=== PATIENT | female | born 1970 | race Caucasian/White ===

== ENCOUNTER 2023-01-30 20:59 | Outpatient (REF) | payer BC, SELFPAY ==
[2023-02-07 12:09] LABS: Age Gdln ACOG Testing Note (.); HPV Aptima Negative (Negative); IGP, Aptima HPV, rfx 16/18,45 Note (.)
== END 2023-01-30 21:00 | disposition home or self-care (01) ==
LOC: LAB 20:59
PROVIDERS: Visit Provider Obstetrics & Gynecology
DX: Z12.4 Encounter for screening for malignant neoplasm of cervix (principal)
CPT/HCPCS: 87624; G0145

== ENCOUNTER 2023-02-24 08:48 | Outpatient (OUT) | payer BC, SELFPAY ==
--- NOTE | 2023-02-24 09:01 | XR_ITS ---
[address] [address] Patient Name: EDEN GOINS MRN: [facility]:[id number] date: 1970 Sex: F Assigned Patient Location: [facility] Current Patient Location: [facility] Accession/Order Number: [id number] Exam Date: 02/24/2023 09:35 Report Date: 02/24/2023 10:23 At the request of: DAY PETERSEN Procedure: XR DEXA axial skeleton EXAMINATION: XR DEXA axial skeleton HISTORY: M81.0 OSTEOPOROSIS COMPARISON: No relevant comparison available. TECHNIQUE: Dual-energy X-ray absorptiometry (DXA) was performed. FINDINGS: FOREARM ANALYSIS: Average bone mineral density is 0.982 g/cm2. T-score (standard deviation relative to young adult mean): -0.4 . HIP ANALYSIS: Lowest bone mineral density is within the right femoral trochanter, 0.730 g/cm2. T-score (standard deviation relative to young adult mean): -1.0 . XR/XR DEXA axial skeleton IMPRESSION: World [employer] Organization Classification: Normal - Low Fracture Risk Electronically authenticated by: BRITNEY QUESADA Date: 02/24/2023 10:23
== END 2023-02-24 08:49 | disposition home or self-care (01) ==
LOC: RAD 08:51
PROVIDERS: Visit Provider Obstetrics & Gynecology
DX: Z01.810 Encounter for preprocedural cardiovascular examination (principal); R10.2 Pelvic and perineal pain; N92.0 Excessive and frequent menstruation with regular cycle; N93.9 Abnormal uterine and vaginal bleeding, unspecified; M81.0 Age-related osteoporosis without current pathological fracture
CPT/HCPCS: 77080; 93005

== ENCOUNTER 2023-02-24 08:53 | Outpatient (OUT) | payer BC, SELFPAY ==
--- NOTE | 2023-02-24 08:58 | ECG_ITS ---
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
== END 2023-02-24 08:54 | disposition home or self-care (01) ==
PROVIDERS: PCP Family Medicine; Visit Provider Obstetrics & Gynecology
DX: Z01.810 Encounter for preprocedural cardiovascular examination (principal); R10.2 Pelvic and perineal pain; N92.0 Excessive and frequent menstruation with regular cycle; N93.9 Abnormal uterine and vaginal bleeding, unspecified
CPT/HCPCS: 93005

== ENCOUNTER 2023-02-28 07:24 | Day surgery (SDC) | payer BC, SELFPAY ==
[2023-02-24 09:23] VITALS: BP 125/80; PULSE 87; RESP 20; TEMP 36.2; O2SAT 98; BMI 36.7
[2023-02-28] VITALS (10 sets, daily range): BP systolic 109–138; BP diastolic 59–91; PULSE 77–88; RESP 11–80; TEMP 35.6–36.3; O2SAT 97–100; BMI 36.7
[2023-02-28 07:44] LABS: Glucometer 87 mg/dL (74-106)
[2023-02-28] MEDS: LACTATED RINGER'S SOLUTION 1,000 ML 50 ML IV ×2 (07:51→10:51)
[2023-02-28 07:55] LABS: Basophils Percent Auto 0.7 % (0.2-2.0); Eosinophils Absolute Auto 0.1 10^3/uL (0.0-0.7); Eosinophils Percent Auto 1.7 % (0.9-7.0); Hematocrit 36.1 % (36.0-48.0); Hemoglobin 11.4 g/dL (12.0-16.0); Immature Granulocytes Abs Auto 0.03 10^3/uL (0.00-0.03); Immature Granulocytes Pct Auto 0.5 % (0.0-0.5); Lymphocytes Absolute Auto 1.8 10^3/uL (1.2-3.8); Lymphocytes Percent Auto 30.2 % (20.5-60.0); Mean Corpuscular HGB Conc 31.6 g/dL (29.9-35.2); Mean Corpuscular Volume 91.9 fL (81.0-99.0); Mean Platelet Volume 10.3 fL (9.5-13.5); Monocytes Absolute Auto 0.4 10^3/uL (0.3-0.8); Neutrophils Absolute Auto 3.7 10^3/uL (1.4-6.5); Neutrophils Percent Auto 60.9 % (43.0-75.0); Platelet Count 263 10^3/uL (150-450); Red Blood Count 3.93 10^6/uL (4.20-5.40); Red Cell Distribution Width 14.2 % (11.0-15.0)
[2023-02-28 08:25] LABS: HCG Quantitative <1 mIU/mL
--- NOTE | 2023-02-28 10:38 | P.ON_ITS ---
Brief Operative Note Date of procedure: 02/28/23 Pre-op diagnosis: menorrhagia, desires permanent sterilization Post-op diagnosis: same as pre-op Procedure: NAME OF PROCEDURE: robotic assisted Laparoscopic bilateral salpingectomy, with Della endometrial ablation with hysteroscopy PROCEDURE: The patient was taken back to the OR where she was prepped and draped in the normal sterile fashion after being placed in the dorsal lithotomy position, after being placed under general anesthesia without difficulty. a weighted speculum was then placed into the vagina. Pap and endometrial bx were performed without difficultyThe anterior lip was grasped with a single tooth tenaculum. The patient was then sounded to approximatley 9cm. The patient was gently sounded using Hegar dilators and the hysteroscope was passed through the cervix into the uterus where both ostia were seen. No gross evidence of polyps, fibroids or malignancy. The cervical length was noted to be 4cm. The Della ablation apparatus was set to approximately 5cm in length. This was placed in through the cervix and into the uterus. After the seal was tested, at that time the total ablation of 120 seconds was performed with the Della without difficulty. All instruments were removed from the vagina. A wet sponge stick was placed into the patient's vagina. Attention was then turned to the patient's abdomen, where a scalpel was used to make a small infraumbilical incision. The S retractors were then used to dissect the underlying layers until the fascia could be seen. The fascia was then grasped with Saran clamps and tented up. A knife was then used to make a small incision to the fascia. The muscle was identified, at that time two sutures of #0 Vicryl on a GI needlewas then used and placed through the fascia. The peritoneum was then identified and entered bluntly. The 10-4 Cara was then placed into the patient's abdomen. This was confirmed with direct visualization of the bowel, using the laparoscope. The patient's abdomen was then insufflated using approximately 4 liters of CO2 gas. Survey of the patient's abdomen demonstrated normal appearing ovaries, uterus and tubes. A second and third lateral robotic ports, which was 8mm in size, was then placed laterally after incision was made in the skin under direct visualization. the robotic arms were engaged. The patient's tube on the patient's right side was identified. The tube was then tented up using a grasper. The ligasure was used to transect and coagulate the mesosalpingx from the fimbriated end to the insertion at the uterus, the tube was amputated and removed in its entirety.? Excellent hemostasis was noted. ?This was performed on the contralateral sideas well. The lateral ports were then moved under direct visualization with excellent hemostasis. The abdomen was deinsufflated. All instruments were removed from the patient's abdomen. The fascia was closed using the #0 Vicryl on GI needle. The skin was closed using 4- 0 Vicryl subcuticularly. All instruments were removed from the patient's vagina as well. The patient was taken out of the dorsal lithotomy position and placed in the supine position and taken to recovery in stable condition. Sponge, lap and needle counts were correct x2. ??? Anesthesia: JACKIE Surgeon: Angelito Ludwig Estimated blood loss (mL): 10 Pathology: other (bilateral tubes) Condition: stable Disposition: PACU
--- NOTE | 2023-02-28 11:39 | PC.NURSE ---
Patient denied pain and was comfortable throughout recovery in phase 1. Patient did say yes to heat pack.
== END 2023-02-28 12:20 | disposition home or self-care (01) ==
PROVIDERS: Visit Provider Obstetrics & Gynecology
PROC: (CPT 58563; principal; 2023-02-28 08:45)
DX: Z30.2 Encounter for sterilization (principal); N92.0 Excessive and frequent menstruation with regular cycle; R10.2 Pelvic and perineal pain; F41.9 Anxiety disorder, unspecified; I10 Essential (primary) hypertension; E03.9 Hypothyroidism, unspecified; M1A.0490 Idiopathic chronic gout, unspecified hand, without tophus (tophi); G47.33 Obstructive sleep apnea (adult) (pediatric); E28.2 Polycystic ovarian syndrome; E55.9 Vitamin D deficiency, unspecified; M47.816 Spondylosis without myelopathy or radiculopathy, lumbar region; I83.10 Varicose veins of unspecified lower extremity with inflammation; J45.909 Unspecified asthma, uncomplicated; Z87.891 Personal history of nicotine dependence; Z98.84 Bariatric surgery status; Z98.1 Arthrodesis status
CPT/HCPCS: 58563; 58661; 36415; 82948; 84702; 85025; 88302; J1170; J2704

== ENCOUNTER 2025-03-28 19:43 | Outpatient (REF) | payer BC, SELFPAY ==
--- OUTSIDE RECORDS SUMMARY | 2025-02-25 09:45 | XMS_ITS | Continuity of Care Document ---
Author Organization [facility] Address [address] [place] [address] Phone Care Team Providers Care Smt Technician Name Role Phone Onofre Brown MD Unavailable Unavailable Procedures Procedure Date OFFICE/OUTPATIENT VISIT, EST OFFICE/OUTPATIENT VISIT, EST OFFICE/OUTPATIENT VISIT, EST OFFICE/OUTPATIENT VISIT, EST OFFICE/OUTPATIENT VISIT, EST OFFICE/OUTPATIENT VISIT, EST OFFICE/OUTPATIENT VISIT, EST OFFICE/OUTPATIENT VISIT, EST OFFICE/OUTPATIENT VISIT, EST OFFICE/OUTPATIENT VISIT, EST OFFICE/OUTPATIENT VISIT, EST POSTOP FOLLOW-UP VISIT POSTOP FOLLOW-UP VISIT Sleeve Gastrectomy LAP SLEEVE GASTRECTOMY OFFICE/OUTPATIENT VISIT, EST OFFICE CONSULTATION Advance Directives Directive Yes / No Effective Date File Name No Information Encounters Encounter Description Practice Location Reason(s) For Visit Diagnoses Date Provider Providers Copied on Encounter OFFICE/OUTPATI ENT VISIT, [facility], [address], [place], [place], [id number], [place] tel:[phone] [facility] No Information Soledad Adhikari. [address], [place], [place], [id number], [place]. tel:[phone] Referring Provider: Onofre Sage, [address], [place], [address] . tel:[phone] OFFICE/OUTPATI ENT VISIT, [facility], [address] [place] [address] [address], [place], [place], [id number], [place] tel:[phone] [facility] No Information Sep-0 2 Stephanie Adhikari. [address] [place] [address] [address], [place], [place], [id number], [place]. tel:[phone] Referring Provider: Onofre Sage, [address], [place], [address] . tel:[phone] OFFICE/OUTPATI ENT VISIT, [facility], [address] [place] [address] [address], [place], [place], [id number], [place] tel:[phone] [facility] No Information Nov-0 1 Stephanie Adhikari. [address] [place] [address] [address], [place], [place], [id number], [place]. tel:[phone] Referring Provider: Onofre Sage, [address] [facility] [address], [place], [address] . tel:[phone] OFFICE/OUTPATI ENT VISIT, [facility], [address] [place] [address] [address], [place], [place], [address], [place] tel:[phone] [facility] No Information Sep- 0 Stephanie Adhikari. [facility] [address] [facility] [address] [facility] [address], [place], [place], [id number], [place]. tel:[phone] Referring Provider: Onofre Sage, [address], [place], [address] . tel:[phone] OFFICE/OUTPATI ENT VISIT, [facility], [address] [place] [address] [address], [place], [place], [address], [place] tel:[phone] [facility] No Information Sep-2 9 Stephanie Adhikari. [facility] [address] [facility] [address], [place], [place], [id number], [place]. tel:[phone] Referring Provider: Onofre Sage, [address], [place], [address] . tel:[phone] OFFICE/OUTPATI ENT VISIT, [facility], [address] [place] [address] [address], [place], [place], [id number], [place] tel:[phone] [facility] No Information Jan- 8 Stephanie Adhikari. [address], [place], [address], [place]. tel:[phone] Referring Provider: Onofre Sage, [address], [place], [address] . tel:[phone] OFFICE/OUTPATI ENT VISIT, [facility], [address] [place] [address] [address], [place], [place], [address], [place] tel:[phone] [facility] No Information 7 No Information OFFICE/OUTPATI ENT VISIT, [facility], [address] [place] [address] [address], [place], [place], [address], [place] tel:[phone] [facility] No Information 0 6 No Information OFFICE/OUTPATI ENT VISIT, [facility], [address] [place] [address] [address], [place], [place], [address], [place] tel:[phone] [facility] No Information 5 No Information OFFICE/OUTPATI ENT VISIT, [facility], [address] [place] [address] [address], [place], [place], [address], [place] tel:[phone] [facility] No Information 4 No Information OFFICE/OUTPATI ENT VISIT, [facility], [address] [place] [address] [address], [place], [place], [address], [place] tel:[phone] [facility] No Information 4 No Information [facility], [address] [place] [address] [address], [place], [place], [id number], [place] tel:[phone] [facility] No Information 3 No Information [facility], [address], [place], [address], [place] tel:[phone] [facility] No Information 3 No Information [employer] [facility], [address] [place] [address] [address], [place], [address], [place] tel:[phone] [facility] No Information 3 No Information [employer] [facility], [address] [place] [address] [address], [place], [id number], [place] tel:[phone] [facility] No Information 3 Stephanie Adhikari. [address] [facility] [address], [place], [place], [address], [place]. tel:[phone] Referring Provider: Onofre Sage, [address] [place] [address] [address], [place], [address] . tel:[phone] OFFICE/OUTPATI ENT VISIT, [facility] [employer] [facility], [address], [place], [place], [address], [place] tel:[phone] [facility] No Information 3 Stephanie Adhikari. [address], [place], [place], [id number], [place]. tel:[phone] Referring Provider: Onofre Sage, [address], [place], [address] . tel:[phone] OFFICE CONSULTATION [facility], [address] [place] [address] [address], [place], [place], [address], [place] tel:[phone] [facility] No Information 3 Stephanie Adhikari. [address], [place], [place], [address], [place]. tel:[phone] Referring Provider: Onofre Sage, [address] [place] [address] [address], [place], [address] . tel:[phone] Family History Family Member Type Diagnosis Age At Onset No Information Payers Payer name Insurance type Covered constitution party ID Bren friedman(leah ESTRELLA [id number] Social History Type Description Quantity Date Captured Comments Sex Female Smoking Status No Information Chief Complaint And Reason For Visit No Information Reason For Referral Reason For Referral No Information Plan Of Treatment Date Type Action Status Appointment Leonila Alexander BOOKED History Of Present Illness Encounter Date Complaint History Of Prese nt Illness No Information Functional Status Date Functional Assessmen t No Information Instructions Date Instruction Additional Infor mation No Information Assessments Type Assessment Date No Information Patient Care Teams Name Effective Dates (start - stop) Status Members No Information
--- OUTSIDE RECORDS SUMMARY | 2025-03-28 15:00 | XMS_ITS | Encounter Summary ---
Author Organization [facility] Address [address] [place] [address] Care Team Providers Care Purler Name Role Phone Eugenia Rock MD Primary Care Provider [phone] Reason for Visit * ReasonCommentsGynecologic Exam Encounter Details DateTypeDepartmentCare Team (Latest Contact Info)Mekqbhsndvv32/27/2025 3:00 PM EDTProcedure Visit [facility] [address] [place] [address] Maricarmen Zuñiga PA [address] [place], [place] [address] Yeast infection (Primary Dx); Well woman exam with routine gynecological exam; Osteoporosis, post-menopausal Social History Tobacco UseTypesPacks/DayYears UsedDateSmoking Tobacco: FormerCigarettes Smokeless Tobacco: FormerChew Comments:Chewing tobacco for (30 years), quit 1 year ago. Alcohol UseStandard Drinks/WeekCommentsYes6 (1 standard drink = 0.6 oz pure alcohol)Caffeine intake: 1-2 cups per daySocial Connection and Isolation Panel AnswerDate RecordedIn a typical week, how many times do you talk on the phone with family, friends, or neighbors?Patient dmxjexre74/05/2024How often do you get together with friends or relatives?Patient gfirfajo43/05/2024How often do you attend catholic or confucianism services?Patient kmugbkfn64/05/2024o you belong to any clubs or organizations such as catholic groups, unions, fraternal or athletic groups, or school groups?Patient ulumqnsp61/05/2024How often do you attend meetings of the clubs or organizations you belong to?Patient declined 09/05/2023re you , , , , never , or living with a partner?Uxbboqg7209/05/2023UDIT-CAnswerDate RecordedQ1: How often do you have a drink containing alcohol?Patient /05/2024Q2: How many drinks containing alcohol do you have on a typical day when you are drinking? Patient pqbffjni28/05/2024Q3: How often do you have six or more drinks on one occasion?Patient ikwdjrhw33/05/2024Overall Financial Resource Strain (CARDIA) AnswerDate RecordedHow hard is it for you to pay for the very basics like food, housing, medical care, and heating?Patient /05/2024HQ-2AnswerDate RecordedPatient Health Questionnaire-2 Ghtak114Finblue mountain hospital, inc. [place] [facility] Occupational [facility] - Occupational Stress QuestionnaireAnswerDate RecordedDo you feel stress - tense, restless, nervous, or anxious, or unable to sleep at night because yourmind is troubled all the time - these days?Patient declined 09/05/2023Exercise Vital SignAnswerDate RecordedOn average, how many days per week do you engage in moderate to strenuous exercise (like a brisk walk)?3 days 09/05/2023On average, how many minutes do you engage in exercise at this level? 30 min09/05/2023Hunger Vital SignAnswerDate RecordedWithin the past 12 months, you worried that your food would run out before you got the money to buymore. Patient /05/2024Within the past 12 months, the food you bought just didn't last and you didn't have money to get more.Patient zpagbqvp58/05/2024 PRAPARE - TransportationAnswerDate RecordedIn the past 12 months, has lack of transportation kept you from medical appointments or from getting medications? Patient hemhygwo17/05/2024In the past 12 months, has lack of transportation kept you from meetings, work, or from getting things needed for daily living?Patient jpogalae39/05/2024Housing Stability Vital SignAnswerDate RecordedIn the last 12 months, was there a time when you were not able to pay the mortgage or rent on time?Patient mfjapuvl97/05/2024Number of Places Lived in the Last YearNot on file09/05/2023In the last 12 months, was there a time when you did not have a steady place to sleep or slept in ashelter (including now)?Patient declined 09/05/2023CommentsNoSex and Gender InformationValueDate RecordedSex Assigned at YrmueVnwsdw13/31/2023 9:39 PM EDTLegal SaoIkwvyg25/15/2023 7:35 PM EDTGender TwdseezeHmtcya50/31/2023 9:39 PM EDTSexual OrientationNot on file documented as of this encounter Last Filed Vital Signs Vital SignReadingTime TakenCommentsBlood Sjhmvzcp282/7803/28/2025 3:05 PM EDT Pulse--Temperature--Respiratory Rate--Oxygen Saturation--Inhaled Oxygen Concentration--Kkxddy582 kg (222 lb)03/28/2025 3:05 PM EDTHeight--Body Mass Index35.8309 1:15 PM EDTdocumented in this encounter Plan of Treatment DateTypeDepartmentCare Team (Latest Contact Info)Zzdshepgtng13/10/2025 1:30 PM ESTOffice Visit [facility] [place] [facility] [address] [place] [address] Lea Mcgee MD [address] [place] [address] 02/20/2026 9:05 AM EDTOffice Visit [facility] [place] [facility] [address] [place] [address] Jill Green APRN-[facility] [facility] [address] [place] [address] 04/03/2026 1:00 PM ESTProcedure Visit [facility] [address] [place] [address] [place] [address] Angelito Ludwig, [address] [facility] [address] [place] [address] NameTypePriorityAssociated DiagnosesOrder ScheduleDEXA bone densityImaging Routine Osteoporosis, post-menopausal Expected: 03/28/2025 (Approximate), Expires: 03/28/2026THIN PREP TIS PAP AND HR HPV DNAPathology and CytologyRoutine Well woman exam with routine gynecological exam Ordered: 03/28/2025documented as of this encounter Visit Diagnoses Diagnosis Yeast infection- Primary Well woman exam with routine gynecological exam Routine gynecological examination Osteoporosis, post-menopausal Senile osteoporosis documented in this encounter Care Teams Team MemberRelationshipSpecialtyStart DateEnd Date Eugenia Rock MD [address] [place] [address] PCP - General11/03/22documented as of this encounter
--- OUTSIDE RECORDS SUMMARY | 2025-03-28 19:48 | XMS_ITS | Clinical Summary ---
Author Organization [facility] Address [address] [facility] [place] [address] Care Team Providers Care Financial Foundations Representative Name Role Phone Mekhi See MD Primary Care Provider + Allergies Active AllergyReactionsCriticalityNoted DateCommentsMontelukast SodiumRashLow 06/08/2012 Medications MedicationSigDispense QuantityRefillsLast FilledStart DateEnd DateStatus Multiple Vitamins-Minerals (THERAPEUTIC MULTIVITAMIN-MINERALS) tablet Take 1 tablet by mouth daily.Active DESOGEN 0.15-30 MG-MCG per tablet Take 1 tablet by mouth cbxrz833ctive ibuprofen (ADVIL;MOTRIN) 800 MG tablet Take 1 tablet by mouth every 8 hours as needed for Pain 30 tablet Active levothyroxine (SYNTHROID) 137 MCG tablet TAKE 1 TABLET DAILY 90 tablet Active omeprazole (PRILOSEC) 20 MG capsule daily as pllpga2608/30/2015Active albuterol sulfate HFA (PROVENTIL HFA) 108 (90 BASE) MCG/ACT inhaler Inhale 2 puffs into the lungs every 4 hours as needed for Wheezing 1 Inhaler Active losartan (COZAAR) 25 MG tablet TAKE 1 TABLET DAILY 30 tablet 01/22/2017Active Active Problems ProblemNoted DateDiagnosed DateH/O bariatric mhxnbnq7703/14/2015S/P lumbar spinal eugyxb3910/04/20138492Ywtrqphvulqu32/26/2247Ugwhqmfznighsn35/26/2013Lung nodule 09/08/2012 Immunizations ImmunizationAdministration DatesNext DueHepatitis B04/,02/06/2007, 01/09/2007Influenza Virus Xcctdjo9003/14/2015 Family History Medical HistoryRelationNameCommentsHigh Blood PressureBrother 1DiabetesFather Heart SurgeryFatherCABG x 2, stentsHigh Blood PressureFatherHigh Blood Pressure MotherRelationNameStatusCommentsBrother 1AliveBrother 2AliveFatherAliveMother Alive Social History Tobacco UseTypesPacks/DayYears UsedDateSmoking Tobacco: NeverSmokeless Tobacco: NeverAlcohol UseStandard Drinks/WeekCommentsNo0 (1 standard drink = 0.6 oz pure alcohol)CommentsNoSex and Gender InformationValueDate RecordedSex Assigned at BirthNot on fileLegal QhzKzsjlc21/10/2013 8:38 PM ESTGender Identity Not on fileSexual OrientationNot on fileOccupationIndustryJob Start DateJob End Datehair stylistNot on fileNot on fileNot on file Last Filed Vital Signs Vital SignReadingTime TakenCommentsBlood Calorncx138/90008/09/2016 1:49 PM EST Yljlz664308/09/2016 1:49 PM TEWLukjimeqsdg11.8 ??C (98.2 ??F)08/09/2016 1:49 PM ESTRespiratory Igqv750308/09/2016 1:49 PM ESTOxygen Saturation--Inhaled Oxygen Concentration--Oxrbmf79.8 kg (198 lb)08/09/2016 1:49 PM UFVHlkylt602.6 cm (5' 6 )08/09/2016 1:49 PM ESTBody Mass Index31.9608/09/2016 1:49 PM EST Plan of Treatment Not on file Insurance Care Teams Team MemberRelationshipSpecialtyStart DateEnd Date Mekhi See MD [address] [place] [address] PCP - General10/07/18
--- OUTSIDE RECORDS SUMMARY | 2025-03-28 19:48 | XMS_ITS | Clinical Summary ---
Author Organization [facility] Address [address] [facility] [place] [address] Care Team Providers Care Grain Manager Name Role Phone Eugenia Rock MD Primary Care Provider [phone] Allergies Active AllergyReactionsCriticalityNoted UetcXotbbgzjKjuwwazbfpnOzmaSlg03/07/2013 Medications MedicationSigDispense QuantityRefillsLast FilledStart DateEnd DateStatus aspirin 81 MG oral suspension Active B Complex Vitamins (VITAMIN B COMPLEX 100 IJ) Inject as directedActive cholecalciferol (Vitamin D-3) 25 MCG (1000 UT) capsule Take 1,000 Units by mouth DailyActive rosuvastatin (Crestor) 20 MG tablet Take 20 mg by mouth in the morning.4Active levothyroxine (Synthroid, Levoxyl) 137 MCG tablet Indications:Hypothyroidism, unspecified typeTAKE 1 TABLET DAILY 90 tablet 5Active metFORMIN XR (Glucophage-XR) 500 MG 24 hr tablet Take 500 mg by mouth in the morning and 500 mg in the evening and 500 mg before bedtime.5Active losartan (Cozaar) 50 MG tablet Indications:Benign essential hypertensionTake 1 tablet (50 mg) by mouth Daily 100 tablet 6Active fluconazole (Diflucan) 150 MG tablet Indications:Yeast infectionTake 1 tablet (150 mg) by mouth 1 (one) time for 1 dose Repeat in 7 days if symptoms persist. 2 tablet 5Active Active Problems ProblemNoted DateDiagnosed DateBenign essential wxwzerjwmyfr87/11/2023 Assessment & Plan (02/07/2025 4:39 PM EDT): Orders: losartan (Cozaar) 50 MG tablet; Take 1 tablet (50 mg) by mouth Daily Frontal hkzedyewr66/11/2023cute stress phucwswl69/11/2023Idiopathic chronic gout of hand without kedphq3612/10/2022Insulin oidwaqnmjm44/11/2023Obstructive sleep apnea12/10/2022COS (polycystic ovarian syndrome)12/10/2022Sciatica, left side12/10/2022Stress and adjustment mwzelmbv00/11/2023Varicose veins of lower extremity with xaqkwlqjttrj87/11/2023Vitamin D xatzqxasoa43/11/2023 Assessment & Plan (02/07/2025 4:39 PM EDT): Closed fracture of distal end of right fibula with routine lluyazd9006/22/2018 Spondylosis of lumbar region without myelopathy or bebdomkjervdo22/03/2018 Overview (12/10/2022): Added automatically from request for surgery [id number] H/O bariatric rvyubzg9703/14/2015 Assessment & Plan (02/07/2025 4:39 PM EDT): S/P lumbar spinal gwpcnw4310/04/20131038Qohpqpkghawg31/26/5582Kiujccwsqnefbk55/26/2013 Assessment & Plan (02/07/2025 4:39 PM EDT): Orders: TSH W/REFLEX TO FT4; Future Lung afwemb1909/08/2012 Resolved Problems ProblemNoted DateDiagnosed DateResolved DateAcute Etjstp38 Encounters DateTypeDepartmentCare IwnjZkxhzzsqxyb60/27/2025 3:00 PM EDTProcedure Visit [facility] [address] [place] [address] [place] [address] Maricarmen Zuñiga PA Yeast infection (Primary Dx); Well woman exam with routine gynecological exam; Osteoporosis, post-wsicupycad14/27/2025amb flowsheet [facility] [address] [place] [address] [place] [phone] Maricarmen Zuñiga PA 03/01/2025Results Follow-Up [facility] [place] [facility] [address] [place] [address] Jill Green, [facility] Dermatopathology exam02/21/2025 9:05 AM EDTOffice Visit [facility] [address] [place] [phone] Jill Green, [facility] Seborrheic keratosis (Primary Dx); Melanocytic nevus of trunk; Lentigines; History of basal cell carcinoma; Neoplasm of unspecified behavior of bone, soft tissue, and skin02/21/2025amb flowsheet [facility] [address] [place] [address] Jill Green [employer] SUPERVISOR-[facility] 02/21/20254090Mmgdyo12/09/2025Results Follow-Up [facility] [place] [address] Eugenia Rock MD TSH W/REFLEX TO FT 1:20 PM EDTOffice Visit [facility] [place] [address] Eugenia Rock MD Routine general medical examination at a health care facility (Primary Dx); Benign essential hypertension ; Acquired hypothyroidism ; H/O bariatric surgery; Vitamin D deficiency; Screening mammogram for breast cancer; Breast /08/2025 12:30 PM EDTAncillary Procedure [facility] [address] [facility] [address] [facility] [address] Screening mammogram for breast ephfun0202/07/2025Results Follow-Up [facility] [place] [address] Lise Baxter NP Bilateral screening mammogram with tsakmdwmjvmxu95/08/4685Bvvzpv72/01/2025Travel 01/07/2025Telephone [facility] [address] [place] [address] Eugenia Rock MD from Last 3 Months Immunizations ImmunizationAdministration DatesNext DueHep B, adult09/18/2007,02/06/2007, 01/09/2007Influenza Whole03/14/2015Influenza, injectable, trgrnbzsfkre46/08/2019 ,05/11/2018,02/24/2017Influenza, injectable, quadrivalent, preservative free 03/04/2020Moderna SARS-CoV-2 Shfeswqsghm99/19/2021 Family History Medical HistoryRelationNameCommentsDiabetesBrother 1Bruce GlaserHeart failure Brother 1Bruce GlaserHypertensionBrother 1Bruce GlaserDiabetesBrother 2Brian GlaserHeart failureBrother 2Brian GlaserHypertensionBrother 2Brian GlaserCancer FatherJames GlaserDiabetesFatherJames GlaserHeart attackFatherJames GlaserHeart diseaseFatherJames GlaserHeart failureFatherJames GlaserHypertensionFatherJames GlaserCOPDMaternal GrandfatherRussell bennettDiabetesMaternal GrandfatherRussell bennettHeart diseaseMaternal GrandfatherRussell bennettHypertensionMaternal GrandfatherRussell bennettCancerMaternal GrandmotherMarguerite Hancock HypertensionMaternal GrandmotherMarguerite BennettOvarian cancerMaternal GrandmotherMarguerite BennettDiabetesMotherRuth GlaserGoutMotherRuth Maria Antonia HypertensionMotherRuth GlaserCancerPaternal GrandmotherNelly HallDiabetesSibling HypertensionSiblingRelationNameStatusCommentsBrother 1Bruce GlaserBrother 2Brian GlaserFatherJames GlaserAlivestents, dad cad 70Maternal GrandfatherRussell bennettMaternal GrandmotherMarguerite BennettMotherRuth GlaserAliveOther2 brothers, 1 daughter.Both brothers are drinkers, chews tobacco.Paternal GrandfatherDeceasedsuicidePaternal GrandmotherNelly HalloralSibling Social History Tobacco UseTypesPacks/DayYears UsedDateSmoking Tobacco: FormerCigarettes Smokeless Tobacco: FormerChew Tobacco Cessation:Counseling Given: Not Answered Comments:Chewing tobacco for (30 years), quit 1 year ago. Alcohol UseStandard Drinks/WeekCommentsYes6 (1 standard drink = 0.6 oz pure alcohol)Caffeine intake: 1-2 cups per daySocial Connection and Isolation Panel AnswerDate RecordedIn a typical week, how many times do you talk on the phone with family, friends, or neighbors?Patient kseqwzph74/05/2024How often do you get together with friends or relatives?Patient byrhkwfw32/05/2024How often do you attend baptist or orthodox services?Patient ykozqbrl38/05/2024o you belong to any clubs or organizations such as baptist groups, unions, fraPanOptica or athletic groups, or school groups?Patient ovjssabx09/05/2024How often do you attend meetings of the clubs or organizations you belong to?Patient declined 09/05/2023re you , , , , never , or living with a partner?Mrezxgi9609/05/2023UDIT-CAnswerDate RecordedQ1: How often do you have a drink containing alcohol?Patient iemxtvdn74/05/2024Q2: How many drinks containing alcohol do you have on a typical day when you are drinking? Patient zkubcszk18/05/2024Q3: How often do you have six or more drinks on one occasion?Patient dzuymoks17/05/2024Overall Financial Resource Strain (CARDIA) AnswerDate RecordedHow hard is it for you to pay for the very basics like food, housing, medical care, and heating?Patient msbaaril63/05/2024HQ-2AnswerDate RecordedPatient Health Questionnaire-2 Efgue927Finuintah basin medical center [facility] [employer] of Occupational Health - Occupational Stress QuestionnaireAnswerDate [...] you got the money to buymore. Patient unpsxala27/05/2024Within the past 12 months, the food you bought just didn't last and you didn't have money to get more.Patient janqonwd91/05/2024 PRAPARE - TransportationAnswerDate RecordedIn the past 12 months, has lack of transportation kept you from medical appointments or from getting medications? Patient aevmmeht75/05/2024In the past 12 months, has lack of transportation kept you from meetings, work, or from getting things needed for daily living?Patient hkwomqyx79/05/2024Housing Stability Vital SignAnswerDate RecordedIn the last 12 months, was there a time when you were not able to pay the mortgage or rent on time?Patient cxlppebd15/05/2024Number of Places Lived in the Last YearNot on file09/05/2023In the last 12 months, was there a time when you did not have a steady place to sleep or slept in [facility] (including now)?Patient declined 09/05/2023CommentsNoSex and Gender InformationValueDate RecordedSex Assigned at YhwapBpdmdp84/31/2023 9:39 PM EDTLegal VvwLesjyw21/15/2023 7:35 PM EDTGender RomzafpgTcsywh14/31/2023 9:39 PM EDTSexual OrientationNot on file Last Filed Vital Signs Vital SignReadingTime TakenCommentsBlood Jdvlvmqy548/7810 3:05 PM EDT Pfrov9327/08/2025 1:15 PM EDTTemperature--Respiratory Wmfp611502/07/2025 1:15 PM EDTOxygen Zucjhaidpw404%02/07/2025 1:15 PM EDTInhaled Oxygen Concentration-- Xclbar802 kg (222 lb)03/28/2025 3:05 PM YTNCddans382.6 cm (5' 6 )02/07/2025 1:15 PM EDTBody Mass Index35.8302/07/2025 1:15 PM EDT Plan of Treatment DateTypeDepartmentCare Team (Latest Contact Info)Icjumxhvrns41/10/2025 1:30 PM ESTOffice Visit [facility] [address] [place] [address] Lea Mcgee MD [address] [place], [place] [phone] 02/20/2026 9:05 AM EDTOffice Visit [facility] [address] [place] [address] Jill Green, [employer] SUPERVISOR-POCKET BUILDER [address] [place], [place] [phone] 04/03/2026 1:00 PM ESTProcedure Visit [facility] [place] [facility] [address] [place] [address] Angelito Ludwig DO [address] [place] [address] Health MaintenanceDue DateLast DoneCommentsCT Iwivxmswuign13/10/1970FIT-DNA 1969FIT1969FOBT1969 1310Ngdmynzigravf18/10/1970MMR Vaccines (1 of 1 - Standard series)1970DTaP/Tdap/Td Vaccines (1 - Tdap)1976COVID-19 Vaccine ( season)501/, 04/15/2021, 09/18/2020, Additional history existsInfluenza Vaccine (#1)610/08/2019, 04/09/2019, 05/11/2018, Additional history existsPostponed from 01/31/2025 (Patient Refused) Pap Smear608/, 07/01/20194054Refiryjmt43/08/096309/12/2024, 01/19/2024, 08/05/2022, Additional history existsCervical Cancer Screening 02/14/2028HPV/Wddcnd108002/13/2023, 11/08/20196256Bbuybacjgps97/29/2030 03/30/2020, 03/30/2020, 01/20/2020Colorectal Cancer Dqcqvqfgm68/29/2030Hepatitis B QvrbbrzxPkasonlhx87/18/2008, 02/06/2007, 01/09/2007HIB VaccinesAged OutNo longer eligible based on patient's age to complete this topicHPV VaccinesAged OutNo longer eligible based on patient's age to complete this topicHepatitis A VaccinesAged OutNo longer eligible based on patient's age to complete this topic IPV VaccinesAged OutNo longer eligible based on patient's age to complete this topicMeningococcal B VaccineAged OutNo longer eligible based on patient's age to complete this topicMeningococcal VaccineAged OutNo longer eligible based on patient's age to complete this topicPneumococcal Vaccine: Pediatrics (0 to 5 Years) and At-Risk Patients (6 to 64 Years)Aged OutNo longer eligible based on patient's age to complete this topicRotavirus VaccinesAged OutNo longer eligible based on patient's age to complete this topic Procedures Procedure NamePriorityDate/TimeAssociated DiagnosisCommentsSKIN / NAIL BIOPSY Wjpvylv8102/21/2025 9:08 AM EDT Neoplasm of unspecified behavior of bone, soft tissue, and skin DERMATOPATHOLOGY OEVVBwpjyfm71/22/2025 12:00 AM EDT Neoplasm of unspecified behavior of bone, soft tissue, and skin TSH W/REFLEX TO GJ2Lhfqgjj36/08/2025 1:43 PM EDT Acquired hypothyroidism BI MAMMOGRAM SCREENING TOMOSYNTHESIS CEJONLVGCLqdgyzv81/08/2025 12:43 PM EDT Screening mammogram for breast cancer THINPREP PAP AND HPV MRNA E6/E7 W/RFL HPV 16,18/83Eyfajmg91/14/2023 2:57 PM EDT Encounter for well woman exam with routine gynecological exam PAP QDSIKKztntxt04/31/2023 12:00 AM WPTOYYELZQKCFWWxpdxuy27/20/2020 12:00 PM EDT from Last 3 Months or Most Recently Relevant to Health Maintenance Results * Lesion biopsy (02/21/2025 9:08 AM EDT) Narrative Hailey Grady MA - 02/21/2025 9:08 AM EDT Type of biopsy: tangential Informed consent: discussed and consent obtained ?? Informed consent comment: ??The risks and benefits of the biopsy were discussed. Risks include but are not limited to bleeding, infection, scarring, pain, and nerve damage. An opportunity to ask questions prior to the procedure was permitted and all questions were answered. Patient was prepped and draped in usual sterile fashion: area cleansed with alcohol. Anesthesia: the lesion was anesthetized in a standard fashion ?? Anesthetic: ??1% lidocaine w/ epinephrine 1-100,000 buffered w/ 8.4% NaHCO3 Instrument used: DermaBlade ?? Hemostasis achieved with: electrodesiccation ?? Outcome: patient tolerated procedure well ?? Outcome comment: ??The specimen was placed in a prelabeled formalin container to be sent for pathology Post-procedure details: sterile dressing applied and wound care instructions given ?? Post-procedure details comment: ??Emphasized need to contact clinic for any signs of infection, uncontrollable bleeding, or complications. Dressing type: bandage ?? 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 COMMENT: Reexcision to ensure complete removal is recommended. ??This case is reviewed in consultation with Dr. Salvador Hamilton. [facility] DIAGNOSTICSGross TextAURORA DIAGNOSTICSMicroscopic DescriptionMicroscopic examination performed. 03/01/2025 Examination of deeper levels show a disorganized junctional proliferation of single melanocytes. ??There are irregularly spaced junctional nests. ??There is focal extension of single melanocytes downthe follicular epithelium. ??There is stromal features of regression. ??The melanocytic lesion is transected at an edge. [place]AR XDLYOULPFYIEHN51976*1AURORA DIAGNOSTICSSpecimen (Source)Anatomical Location / LateralityCollection Method / VolumeCollection TimeReceived TimeSkin Topography unknown / Hxzjxmm0402/21/2025 9:08 AM EDTComment:Differential Diagnosis: Atypical Nevus vs other Check Margins: No Size of lesion: 0.9 x 0.4 cm Narrative Authorizing ProviderResult TypeResult StatusNatalie Cris Green TRUCK SHOP SUPERVISORBRATTLEBORO MEMORIAL H[facility]PITAL PATHOLOGY ORDERABLESFinal ResultPerforming OrganizationAddressCity/State/ZIP CodePhone Number [facility] * TSH W/REFLEX TO FT4 (02/07/2025 1:43 PM EDT)ComponentValueRef RangeTest Method Analysis TimePerformed AtPathologist SignatureTSH W/REFLEX TO FT41.63mIU/L QUESTComment: ?Reference Range ? > or = 20 Years 0.40-4.50 ? Ranges ?First trimester ?0.26-2.66 ?Second trimester ?? 0.55-2.73 ?Third trimester ?0.43-2.91 Specimen (Source)Anatomical Location / LateralityCollection Method / Volume Collection TimeReceived Time02/07/2025 1:43 PM EDT02/07/2025 1:44 PM EDT Narrative Resulting Agency Comment Performing Organization Information ?Site ID: QPT ?Name: [employer] [facility] ?Address: [address] [place] [address], [address] [place] [id number] ?Director: Unruly Lomas MD Authorizing ProviderResult TypeResult StatusEugenia Rock MDLAB BLOOD ORDERABLES Final ResultPerforming OrganizationAddressCity/State/ZIP CodePhone Number [facility]ST * Bilateral screening mammogram with tomosynthesis (02/07/2025 12:43 PM EDT) Anatomical RegionLateralityModalityBreastBilateralMammographySpecimen (Source) Anatomical Location / LateralityCollection Method / VolumeCollection Time Received Time02/07/2025 1:05 PM EDT Impressions 02/07/2025 1:10 PM EDT Impression: No specific evidence of malignancy seen in either breast. BIRADS 2 - Benign Findings DENSITY: There are scattered areas of fibroglandular density. FOLLOW-UP: Routine Screening Mammogram ELECTRONICALLY SIGNED BY: Noe Bradshaw M.D. Narrative 02/07/2025 1:10 PM EDT Examination: BI MAMMOGRAM SCREENING TOMOSYNTHESIS BILATERAL Clinical History: screening Technique: Screening digital mammography study of both breasts was performed with 2-D and 3-D tomosynthesis imaging. Study was compared to the prior exam dated 01/19/2024. Findings: There is no evidence of interval dominant spiculated mass, grouped microcalcifications, or skin thickening which would be suggestive of malignancy. ?? A few benign-appearing calcifications are seen bilaterally. Procedure Note Noe Bradshaw MD - 02/07/2025 Examination: BI MAMMOGRAM SCREENING TOMOSYNTHESIS BILATERAL Clinical History: screening Technique: Screening digital mammography study of both breasts wasperformed with 2-D and 3-D tomosynthesis imaging. Study was compared tothe prior exam dated 01/19/2024. Findings: There is no evidence of interval dominant spiculated mass,grouped microcalcifications, or skin thickening which would be suggestiveof malignancy. A few benign-appearing calcifications are seen bilaterally. IMPRESSION: Impression: No specific evidence of malignancy seen in either breast. BIRADS 2 - Benign Findings DENSITY: There are scattered areas of fibroglandular density. FOLLOW-UP: Routine Screening Mammogram ELECTRONICALLY SIGNED BY: Noe Bradshaw M.D. Authorizing ProviderResult TypeResult StatusLise Baxter NPIMG BI PROCEDURES Final Result * THINPREP PAP AND HPV MRNA E6/E7 W/RFL HPV 16,18/45 (02/13/2023 2:57 PM EDT) Narrative Authorizing ProviderResult TypeResult StatusCorekaleb Ludwig DOLAB BLOOD ORDERABLES Final ResultPerforming OrganizationAddressCity/State/ZIP CodePhone Number EXTERNAL LAB * Pap Smear (01/30/2023 12:00 AM EDT)Specimen (Source)Anatomical Location / LateralityCollection Method / VolumeCollection TimeReceived TimeSwabCervical swab / Unknown Narrative Authorizing ProviderResult TypeResult StatusHistorical Provider MDLAB CYTOLOGY ORDERABLESFinal ResultPerforming OrganizationAddressCity/State/ZIP CodePhone Number EXTERNAL LAB * Colonoscopy (01/20/2020 12:00 PM EDT)Anatomical RegionLateralityModality EndoscopySpecimen (Source)Anatomical Location / LateralityCollection Method / VolumeCollection TimeReceived Time01/20/2020 12:00 PM EDT Narrative 01/20/2020 12:00 PM EDT PERFORMED AT [facility] LOCATION:[id number] Procedure Note CONVERSION, GENERIC - 10/16/2022 PERFORMED AT [facility] LOCATION:[id number] Authorizing ProviderResult TypeResult StatusEugenia Rock MDENDOSCOPY PROCEDURE ORDERABLESFinal Result from Last 3 Months or Most Recently Relevant to Health Maintenance Insurance Care Teams Team MemberRelationshipSpecialtyStart DateEnd Date Eugenia Rock MD [address] [place] [address] PCP - General11/03/22
--- OUTSIDE RECORDS SUMMARY | 2025-03-28 19:48 | XMS_ITS | Clinical Summary ---
Author Organization [facility] Address [address] [place], [place] [address] Care Team Providers Care Sheltered Workshop Executive Director Name Role Phone Toi Michael MD Primary Care Provider [phone] Allergies Active AllergyReactionsCriticalityNoted DateCommentsMontelukast SodiumRash 11/13/2012 Medications MedicationSigDispense QuantityRefillsLast FilledStart DateEnd DateStatus Levothyroxine 137 mcg cap Take by mouth.Active losartan 50 mg tablet Take 50 mg by mouth once daily.Active DESOGESTREL-ETHINYL ESTRADIOL (DESOGEN ORAL) Take by mouth.Active Family History Medical HistoryRelationCommentsCancerPaternal GrandmotherThroat, smokerRelation StatusCommentsPaternal Grandmother Social History Tobacco UseTypesPacks/DayYears UsedDateSmoking Tobacco: NeverAlcohol UseStandard Drinks/WeekCommentsNot Asked0 (1 standard drink = 0.6 oz pure alcohol)Area Deprivation IndexAnswerDate RecordedNational Score (1-100), lower number is lower riskNot on file05/10/2020State Score (1-10), lower number is lower riskNot on file05/10/2020Data from: https://www.neighborhoodatlas.medicine.[facility].edu/. Last address used for calculationNot on file05/10/2020CommentsUnknownSex and Gender InformationValueDate RecordedSex Assigned at BirthNot on fileLegal KjjJkenxv81/10/2013 2:18 PM EDTGender IdentityNot on fileSexual OrientationNot on file Last Filed Vital Signs Vital SignReadingTime TakenCommentsBlood Plvufbrr484/7308 9:09 AM EDT Roftc726001/11/2013 9:09 AM EPIWzlbeelptml31.6 ??C (97.9 ??F)01/11/2013 9:09 AM EDTRespiratory Fhfk729001/11/2013 9:09 AM EDTOxygen Fduygjdouf446%01/11/2013 9:09 AM EDTInhaled Oxygen Concentration--Weight--Height--Body Mass Index-- Plan of Treatment Health MaintenanceDue DateLast DoneCommentsAnxiety Mhjrgcfii32/10/1988Depression Gcpvhrhxi83/10/1988HIV Bscfwlhct75/10/1988Hepatitis C Kcutbtdur49/10/1988 DTaP,Tdap,Td Vaccine (1 - Tdap)1988Hepatitis B Vaccine (1 of 3 - 19+ 3- dose series)1988Cervical Cancer Tuupzxsqi77/10/1991Mammogram Screening 2009CT Duodqrmkilkp74/10/2015Cologuard (FIT-DNA)2014Colonoscopy 2014Colorectal Cancer Jnsfzmlvi27/10/2015Diabetes Qxmagmyqz18/10/2015Fecal Occult Blood2014Lipid Iotfripdb99/10/4945Hcncfzyegbqnt97/10/2015 Pneumococcal Vaccine: 50+ (1 of 1 - PCV)11/10/2019Shingrix Vaccine (1 of 2) 11/10/2019Covid-19 Vaccine (1 - 2024- season)2025Influenza Vaccine (#1) 2025 Insurance Care Teams Team MemberRelationshipSpecialtyStart DateEnd Date Toi Michael MD [address] [place] [address] PCP - GeneralInternal Medicine11/13/12
--- OUTSIDE RECORDS SUMMARY | 2025-03-28 19:48 | XMS_ITS | Patient Health Record ---
Author Organization [facility] [place] Address [address] [place] [address] Support Name Relationship Address Phone Zeeshan Benjamin Emergency Contact Unknown [phone] [place] Guarantor Unknown [phone] Reason For Referral No Information Medications Medication SIG (Take, Route, Frequency, Duration) Notes Start Date End Date Status Cozaar 50 mg 1 tablet DAILY ActiveDesogen 0.15 mg-0.03 mg1 tablet DAILY ActiveSynthroid 137 mcg (0.137 mg)tablet DAILY Active Plan Of Treatment No Information Insurance Providers Payer Name Payer Address Payer Phone Subscriber Number Group Number Insured Name Patient Relationship to Insured Coverage Start Date Coverage End Date [employer] PPO PLUS LOCAL PLAN [address] [place] [phone] [id number] Zeeshan [place] Spouse - patient is the spouse of the insured 3
--- OUTSIDE RECORDS SUMMARY | 2025-03-28 19:48 | XMS_ITS | Encounter Summary ---
Author Organization [facility] Address [address] [place] [address] Care Team Providers Care Improvement Specialist Name Role Phone Eugenia Rock MD Primary Care Provider [phone] Encounter Details DateTypeDepartmentCare Team (Latest Contact Info)Bvkoosisnwn99/27/2025amboo flowsheet [facility] [address] [place] [phone] Maricarmen Zuñiga PA [address] [place], [place] [id number] Social History Tobacco UseTypesPacks/DayYears UsedDateSmoking Tobacco: FormerCigarettes Smokeless Tobacco: FormerChew Comments:Chewing tobacco for (30 years), quit 1 year ago. Alcohol UseStandard Drinks/WeekCommentsYes6 (1 standard drink = 0.6 oz pure alcohol)Caffeine intake: 1-2 cups per daySocial Connection and Isolation Panel AnswerDate RecordedIn a typical week, how many times do you talk on the phone with family, friends, or neighbors?Patient kszelrwn89/05/2024How often do you get together with friends or relatives?Patient imycqwbl03/05/2024How often do you attend episcopal or confucianist services?Patient lxjducql98/05/2024o you belong to any clubs or organizations such as episcopal groups, unions, fraternal or athletic groups, or school groups?Patient iljykpsn28/05/2024How often do you attend meetings of the clubs or organizations you belong to?Patient declined 09/05/2023re you , , , , never , or living with a partner?Rjbhjkq7709/05/2023UDIT-CAnswerDate RecordedQ1: How often do you have a drink containing alcohol?Patient hrifciwx08/05/2024Q2: How many drinks containing alcohol do you have on a typical day when you are drinking? Patient qwwtsrfu80/05/2024Q3: How often do you have six or more drinks on one occasion?Patient uppibaep37/05/2024Overall Financial Resource Strain (CARDIA) AnswerDate RecordedHow hard is it for you to pay for the very basics like food, housing, medical care, and heating?Patient qbhzelxh30/05/2024HQ-2AnswerDate RecordedPatient Health Questionnaire-2 Tvbdo669Final[facility] [place] of Occup[facility] - Occupational Stress QuestionnaireAnswerDate [...] you got the money to buymore. Patient zfejprrp20/05/2024Within the past 12 months, the food you bought just didn't last and you didn't have money to get more.Patient arcwsvfk82/05/2024 PRAPARE - TransportationAnswerDate RecordedIn the past 12 months, has lack of transportation kept you from medical appointments or from getting medications? Patient ujgijmte32/05/2024In the past 12 months, has lack of transportation kept you from meetings, work, or from getting things needed for daily living?Patient vmaxbvlv74/05/2024Housing Stability Vital SignAnswerDate RecordedIn the last 12 months, was there a time when you were not able to pay the mortgage or rent on time?Patient xuqyhejn47/05/2024Number of Places Lived in the Last YearNot on file09/05/2023In the last 12 months, was there a time when you did not have a steady place to sleep or slept in ashelter (including now)?Patient declined 4CommentsNoSex and Gender InformationValueDate RecordedSex Assigned at OrrkqAvhshy95/31/2023 9:39 PM EDTLegal IkmAtkevo37/15/2023 7:35 PM EDTGender BhktqvawCuygbg97/31/2023 9:39 PM EDTSexual OrientationNot on file documented as of this encounter Plan of Treatment DateTypeDepartmentCare Team (Latest Contact Info)Thtmxfnmjpl12/10/2025 1:30 PM ESTOffice Visit [facility] [address] [place] [address] Lea Mcgee MD [address] [place] [address] 02/20/2026 9:05 AM EDTOffice Visit [facility] [address] [place] [address] Jill Green, OSS ARCHITECT-WEB DESIGN INTERN [address] [place], [place] [id number] 04/03/2026 1:00 PM ESTProcedure Visit [facility] [address] [place] [address] Angelito Ludwig DO [address] [place] [address] documented as of this encounter Visit Diagnoses Not on filedocumented in this encounter Care Teams Team MemberRelationshipSpecialtyStart DateEnd Date Eugenia Rock MD [address] [place] [address] PCP - General11/03/22documented as of this encounter
--- OUTSIDE RECORDS SUMMARY | 2025-03-28 19:48 | XMS_ITS | Clinical Summary ---
Author Organization [facility] Address [facility] [id number] [address] [place] [address] Care Team Providers Care Market Development Trainer Name Role Phone Eugenia Rock MD Primary Care Provider [phone] Allergies Active AllergyReactionsCriticalityNoted RccaGjnfnprnMjdxewybczlIjtvXrc67/08/2016 Medications MedicationSigDispense QuantityRefillsLast FilledStart DateEnd DateStatus SYNTHROID 137 mcg tablet Take 1 tablet (137 mcg total) by mouth in the morning.01/21/2016Active multivitamin capsule Take 1 capsule by mouth in the morning.Active cholecalciferol 1,000 units tablet Take 1 tablet (1,000 Units total) by mouth in the morning.Active VITAMIN B COMPLEX ORAL Take by mouth daily.Active aspirin 81 mg Take 1 tablet (81 mg total) by mouth in the morning. On hold.Active ibuprofen (MOTRIN) 800 mg tablet Take 1 tablet (800 mg total) by mouth 3 (three) times a day. 21 tablet 05/28/2023ctive losartan (COZAAR) 25 mg tablet Take 1 tablet (25 mg total) by mouth in the morning. 90 tablet ctive rosuvastatin (CRESTOR) 20 mg tablet Take 1 tablet (20 mg total) by mouth in the morning. 90 tablet ctive amitriptyline (ELAVIL) 10 mg tablet Indications:Primary osteoarthritis involving multiple jointsOne capsule at 8 PM each night 30 tablet 5Active Active Problems ProblemNoted DateDiagnosed DateMixed khbrgeyaccvbvu91/18/2024BMI 36.0-36.9,adult 05/19/2024Family history of ASCVD3Primary dtwgdzvlcepd24/28/2023 Abnormal ECG02/27/2023losed fracture of distal end of right fibula with routine efujrrr2606/22/2018Spondylosis of lumbar region without myelopathy or uxiyrvzctezlq07/03/2018 Overview (05/04/2018): Added automatically from request for surgery [id number] Resolved Problems ProblemNoted DateDiagnosed DateResolved DateEncounter for lipid screening for cardiovascular gyverpj40 Family History Medical HistoryRelationNameCommentsHeart attackBrotherHeart diseaseFatherCOPD Maternal GrandfatherDepressionMaternal GrandmotherNo Known ProblemsMother DepressionPaternal GrandmotherRelationNameStatusCommentsBrotherFatherAlive Maternal GrandfatherMaternal GrandmotherMotherAlivePaternal Grandmother Social History Tobacco UseTypesPacks/DayYears UsedDateSmoking Tobacco: NeverSmokeless Tobacco: Never Tobacco Cessation:Counseling Given: No Alcohol UseStandard Drinks/WeekCommentsYes0 (1 standard drink = 0.6 oz pure alcohol)occasionalChildcareAnswerDate CjwmnhrjVgudomdhqCmqxghb15/12/2019 EmploymentAnswerDate MxygpfrvDibduveumvPcryvmi94/12/2019Purpose - LifeAnswerDate RecordedPurpose and direction in tclaWtgmtav29/11/2021CommentsNoSex and Gender InformationValueDate RecordedSex Assigned at BirthNot on fileLegal Sex Rymtul4701/05/2015 11:25 AM EDTGender IdentityNot on fileSexual OrientationNot on file Last Filed Vital Signs Vital SignReadingTime TakenCommentsBlood Xiwvrvis552/7406/21/2024 8:34 AM EST Omkmj794005/19/2024 3:34 PM EDTDprsuobapfo65.7 ??C (98.1 ??F)05/27/2023 10:47 PM ESTRespiratory Nyis648106/21/2024 8:34 AM ESTOxygen Jskuwouofe78%05/28/2023 1:12 AM ESTInhaled Oxygen Concentration--Bobmle879.2 kg (232 lb)06/21/2024 8:34 AM ZHHZairjx948.6 cm (5' 5.98 )06/21/2024 8:34 AM ESTBody Mass Index37.46006/21/2024 8:34 AM EST Plan of Treatment DateTypeDepartmentCare Team (Latest Contact Info)Wohstoreiam51/15/2025 2:15 PM ESTOffice Visit [facility] [address] [place] [address] Sherlyn Sen MD [address] [place] [address] Health MaintenanceDue DateLast DoneCommentsDepression Juuubsanb56/10/1982Adult BMI Follow Up Plan11/10/1987DTaP,Tdap and Td Vaccines (1 - Tdap)1988Zoster (Shingles) Vaccine (1 of 2)11/10/2019COVID-19 Vaccine ( - season) 501/, 04/15/2021, 09/18/2020, Additional history existsInfluenza Pevtgoo09/08/2019, 04/09/2019, 05/11/2018, Additional history exists Adult BMI Paulnyrmh98/Tobacco Ittzojggd66/Pap Smear/, 09/12/2014 Medical Devices Not on file Procedures Procedure NamePriorityDate/TimeAssociated DiagnosisCommentsHIGH RISK HPV W/MARICHUY Ycdmpuj1409/12/2014 7:00 AM EDT from Last 3 Months or Most Recently Relevant to Health Maintenance Results * High risk HPV w/marichuy (09/12/2014 7:00 AM EDT)ComponentValueRef RangeTest MethodAnalysis TimePerformed AtPathologist SignatureHpv specimen typeThinPrep 09/12/2014 2:06 PM EDTSUNQUESTHpv 72CauleopjTnesibcj40/14/2015 1:48 PM EDT SUNQUESTHpv 77NgmpgzvrDknvwdgy78/14/2015 1:48 PM EDTSUNQUESTOther high risk ycxSrgxdfgxCcqmezjg50/14/2015 1:48 PM EDTSUNQUESTComment: HPV types 31,33,35,39,45,52,56,58,59,66 and 68 DNA were undetectable. Specimen (Source)Anatomical Location / LateralityCollection Method / Volume Collection TimeReceived Time09/12/2014 7:00 AM EDT09/12/2014 2:06 PM EDT Narrative Authorizing ProviderResult TypeResult StatusDaisaac Hayes MDLAB BLOOD ORDERABLESFinal ResultPerforming OrganizationAddressCity/State/ZIP CodePhone Number SUNQUEST from Last 3 Months or Most Recently Relevant to Health Maintenance Insurance Care Teams Team MemberRelationshipSpecialtyStart DateEnd Date Eugenia Rock MD PCP - GeneralFamily Atrsvvde75/26/23
== END 2025-03-28 19:44 | disposition home or self-care (01) ==
LOC: LAB 19:43
PROVIDERS: Visit Provider Physician Assistant
DX: Z01.419 Encounter for gynecological examination (general) (routine) without abnormal findings (principal)
CPT/HCPCS: 87624; 88175